=== PATIENT | female | born 1965 | race American Indian/Alaskan Native ===

== ENCOUNTER 2017-10-10 22:56 | Emergency (ER) | payer OTHER ==
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
[2017-10-11] MEDS ORDERED: NORCO 5/325 PO ONE (03:00)
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
[2017-10-11 04:10] VITALS: BP 155/86
--- NOTE | 2017-10-11 09:17 | XRay Report ---
Left shoulder 3 views: History: Shoulder pain. Findings: Mild arthritic changes a.c. joint. Glenohumeral joint grossly appears unremarkable. No fracture dislocation or soft tissue calcification. Impression: Mild arthritic changes a.c. joint.
== END 2017-10-11 04:10 | disposition home or self-care (01) ==
LOC: ED 22:56
DX: S09.8XXA Other specified injuries of head, initial encounter (principal); M54.2 Cervicalgia; K21.9 Gastro-esophageal reflux disease without esophagitis; Z91.040 Latex allergy status; V49.49XA Driver injured in collision with other motor vehicles in traffic accident, initial encounter; Y92.89 Other specified places as the place of occurrence of the external cause; Y99.8 Other external cause status
CPT/HCPCS: 70450; 72125